=== PATIENT | male | born 1980 | race Two or more races ===

== ENCOUNTER → 2018-04-01 | Outpatient (CLI) | payer BC ==
--- NOTE | 2018-04-01 15:47 | RADIOLOGY REPORT (SQ) ---
EXAM DESCRIPTION: HAND BILATERAL 3 VIEWS COMPLETED DATE/TIME: 04/01/2018 2:06 pm REASON FOR STUDY: BILATERAL HAND PAIN M79.641 PAIN IN RIGHT HAND HITTING HEAVY BOXING BAG 2 WEEKS A GO WITHOUT GLOVES, CONTINUED HAND PAIN COMPARISON: None. EXAM PARAMETERS: NUMBER OF VIEWS: Three views right hand. Three views left hand. TECHNIQUE: AP, lateral and oblique radiographic images acquired of bilateral hands. LIMITATIONS: None. FINDINGS: RIGHT HAND: MINERALIZATION: Normal. BONES: No acute fracture or dislocation. Old healed fracture, base 5th metacarpal with superimposed joint space narrowing and bony spurring at the 5th carpometacarpal joint. JOINTS: No erosions. No jacqui-articular osteopenia. No chondrocalcinosis. SOFT TISSUES: No swelling. No calcifications. OTHER: No other significant finding. LEFT HAND: MINERALIZATION: Normal. BONES: No acute fracture or dislocation. No worrisome bone lesions. No significant osteophytes. JOINTS: No erosions. No jacqui-articular osteopenia. No chondrocalcinosis. SOFT TISSUES: No swelling. No calcifications. OTHER: No other significant finding. IMPRESSION: No acute fracture or malalignment. 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
== END ==
LOC: OD 13:14
PROVIDERS: ATTEND Nurse Practitioner Family
DX: M79.641 Pain in right hand (principal); M19.042 Primary osteoarthritis, left hand